=== PATIENT | female | born 1980 | race Caucasian/White ===

== ENCOUNTER 2019-03-04 15:11 | Outpatient (CLI) | payer OTHER | END 2019-03-04 23:59 | disposition home or self-care (01) | LOC: STAR 15:11 | PROVIDERS: ATTEND Obstetrics & Gynecology | DX: Z01.818 Encounter for other preprocedural examination (principal); N93.9 Abnormal uterine and vaginal bleeding, unspecified; R82.998 Other abnormal findings in urine | CPT/HCPCS: 36415; 80048; 81001; 85025; 87086 ==

== ENCOUNTER 2019-03-19 12:19 | Inpatient (IN) | payer OTHER ==
[~2019-03-19] VITALS: Ht 157.5 cm; Wt 106.7 kg
[2019-03-20 17:29] VITALS: BP 96/66
== END 2019-03-20 17:40 | disposition home or self-care (01) | DRG 742 ==
LOC: OUT 12:19 → 4NOR 20:15 → OUT 22:17
PROVIDERS: ADMIT Obstetrics & Gynecology; ATTEND Obstetrics & Gynecology
PROC: 0UT9FZZ Resection of Uterus, Via Natural or Artificial Opening With Percutaneous Endoscopic Assistance (ICD-10-PCS; principal; 2019-03-19)
PROC: 0UB74ZZ Excision of Bilateral Fallopian Tubes, Percutaneous Endoscopic Approach (ICD-10-PCS; 2019-03-19)
PROC: 0T9B8ZZ Drainage of Bladder, Via Natural or Artificial Opening Endoscopic (ICD-10-PCS; 2019-03-19)
DX: N93.9 Abnormal uterine and vaginal bleeding, unspecified (principal); E43 Unspecified severe protein-calorie malnutrition; Z68.41 Body mass index [BMI] 40.0-44.9, adult; F17.210 Nicotine dependence, cigarettes, uncomplicated; F41.9 Anxiety disorder, unspecified; Z87.11 Personal history of peptic ulcer disease; Z98.84 Bariatric surgery status
CPT/HCPCS: 71045; 81025; 88307; 93005; 94640; G0378; J0171; J0690; J1100; J2250; J2405; J2704; J3010; J3490; J7613; J2370; J7120